=== PATIENT | female | born 2000 | race Caucasian/White ===

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

== ENCOUNTER 2019-02-21 12:49 | Emergency (ER) | payer OTHER ==
[2019-02-21 12:53] VITALS: BP 130/66; PULSE 92; TEMP 97; BMI 31.1
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
== END 2019-02-21 14:24 | disposition home or self-care (01) ==
LOC: JER 12:49 → JERFT 12:49
PROC: 2W3JX1Z Immobilization of Right Finger using Splint (ICD-10-PCS; principal; 2019-02-21)
DX: S62.647A Nondisplaced fracture of proximal phalanx of left little finger, initial encounter for closed fracture (principal); W21.09XA Struck by other hit or thrown ball, initial encounter; Y93.89 Activity, other specified; Y92.838 Other recreation area as the place of occurrence of the external cause; Y99.8 Other external cause status
CPT/HCPCS: 29130; 29131; 73140-TC-LT-FY; 99282-25

== ENCOUNTER 2019-05-31 18:08 | Emergency (ER) | payer OTHER ==
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
[2019-05-31 18:33] VITALS: BMI 32.9
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
[2019-05-31] MEDS ORDERED: ACETAMINOPHEN 500 MG TABLET (FP) PO ONE (19:40)
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
[2019-05-31] MEDS ORDERED: ACETAMINOPHEN 500 MG TABLET (FP) ONE (20:03)
[2019-05-31 20:53] LABS: URINE APPEARANCE CLEAR; URINE BILIRUBIN NEGATIVE (NEGATIVE); URINE COLOR YELLOW; URINE GLUCOSE (UA) NEGATIVE (NEGATIVE); URINE KETONE NEGATIVE (NEGATIVE); URINE LEUK ESTERASE NEGATIVE (NEGATIVE); URINE NITRITE NEGATIVE (NEGATIVE); URINE PROTEIN TRACE (NEGATIVE); URINE UROBILINOGEN 0.2 mg/dL (0.2-1.0)
[2019-05-31 22:57] LABS: EOS % 1.2 % (0-4.5); HEMATOCRIT 38.6 % (32.4-45.2); LYMPH % 25.7 % (8-40); MCH 27.9 pg (25.7-33.7); MCHC 33.6 g/dl (32.0-36.0); MEAN CELL VOLUME 82.9 fl (80-96); MEAN PLT VOLUME 8.9 fl (7.5-11.1); MONO % 11.1 % (3.8-10.2); PLATELET COUNT 288 K/MM3 (134-434); RBC 4.66 M/mm3 (3.60-5.2); RDW 14.9 % (11.6-15.6); WHITE BLOOD COUNT 6.2 K/mm3 (4.0-10.0)
[2019-05-31 23:11] LABS: INR 1.03 (0.83-1.09); PROTHROMBIN TIME (PATIENT) 12.2 SEC (9.7-13.0)
[2019-05-31 23:23] LABS: ALBUMIN 4.5 g/dl (3.4-5.0); ALK PHOS 73 U/L (45-117); ANION GAP 7 MMOL/L (8-16); BILIRUBIN,TOTAL 0.4 mg/dL (0.2-1); BLOOD UREA NITROGEN 10.4 mg/dL (7-18); CALCIUM 9.5 mg/dL (8.5-10.1); CHLORIDE 106 mmol/L (98-107); CO2 25 mmol/L (21-32); CREATININE 0.9 mg/dL (0.55-1.3); GLUCOSE,RANDOM 89 mg/dL (74-106); SGOT/AST 17 U/L (15-37); SGPT/ALT 20 U/L (13-61); SODIUM 138 mmol/L (136-145); TOT PROT 8.9 g/dl (6.4-8.2)
[2019-06-01 01:39] VITALS: BP 123/75; PULSE 84; TEMP 98.7
--- NOTE | 2019-06-01 09:17 | EKG ---
Test Reason : Blood Pressure : / mmHG Vent. Rate : 089 BPM Atrial Rate : 089 BPM P-R Int : 156 ms QRS Dur : 082 ms QT Int : 356 ms P-R-T Axes : 038 048 040 degrees QTc Int : 433 ms SINUS RHYTHM WITH MARKED SINUS ARRHYTHMIA OTHERWISE NORMAL ECG NO PREVIOUS ECGS AVAILABLE Confirmed by Pito Kamara MD ([id number]) on 06/01/2019 9:17:38 AM Referred By: Confirmed By:Pito Kamara MD
== END 2019-06-01 01:30 | disposition home or self-care (01) ==
LOC: JER 18:08
DX: S20.219A Contusion of unspecified front wall of thorax, initial encounter (principal); S20.01XA Contusion of right breast, initial encounter; S30.1XXA Contusion of abdominal wall, initial encounter; V43.52XA Car driver injured in collision with other type car in traffic accident, initial encounter; Y92.414 Local residential or business street as the place of occurrence of the external cause; W22.11XA Striking against or struck by driver side automobile airbag, initial encounter; Y93.89 Activity, other specified; Y99.8 Other external cause status
CPT/HCPCS: 36415; 71046-TC-FY; 71260-TC; 74177-TC; 80053; 81003; 82550; 82553; 84484; 84703; 85025; 85610; 86850; 86900; 86901; 93005; 93010; 99285-25

== ENCOUNTER 2020-11-12 08:22 | Emergency (ER) | payer OTHER ==
[2020-11-12 08:27] VITALS: BP 114/76; PULSE 88; TEMP 98; BMI 36.6
[2020-11-12] MEDS ORDERED: DEXAMETHASONE SOD PHOSPHATE 10 MG/1 ML VIAL IM ONE (09:20)
[2020-11-12] MEDS ORDERED: FAMOTIDINE 20 MG TABLET PO ONE (09:20)
[2020-11-12] MEDS ORDERED: FAMOTIDINE 20 MG TABLET ONE (09:22)
[2020-11-12] MEDS ORDERED: DEXAMETHASONE SOD PHOSPHATE 10 MG/1 ML VIAL ONE (09:22)
== END 2020-11-12 10:00 | disposition home or self-care (01) ==
LOC: JERFT 08:22
PROC: 3E023GC Introduction of Other Therapeutic Substance into Muscle, Percutaneous Approach (ICD-10-PCS; principal; 2020-11-12)
DX: L50.9 Urticaria, unspecified (principal); L23.9 Allergic contact dermatitis, unspecified cause
CPT/HCPCS: 99284-25; J1100